=== PATIENT | female | born 1980 | race Caucasian/White ===

== ENCOUNTER 2020-03-30 15:27 | Emergency (ER) | payer OTHER, SELFPAY ==
[2020-03-30 15:52] VITALS: BP 131/85; PULSE 109; RESP 20; TEMP 36.9; O2SAT 98; BMI 35.7
[2020-03-30 16:17] VITALS: BP 131/85; PULSE 109; RESP 20; TEMP 36.9; O2SAT 98
--- NOTE | 2020-03-30 16:19 | HMH.EDUTC ---
[facility] [place] Disposition Clinical Impression: Cellulitis Qualifiers: Site of cellulitis: extremity Site of cellulitis of extremity: lower extremity Laterality: left Qualified Code(s): L03.116 - Cellulitis of left lower limb Disposition: Home, Self-Care Condition on Discharge: Good Instructions: Cellulitis Additional Instructions: Keep the affected area clean and dry. Follow up with your regular doctor. Take the antibiotics as directed and apply the topical antibiotics as directed. Apply warm wet compresses to the affected area three or four times per day. GO TO THE ER FOR ANY WORSENING SYMPTOMS Prescriptions: Sulfamethoxazole/Trimethoprim [Bactrim DS tablet] 1 each PO BID 10 Days #20 tab Transmission Status: Received by [facility] # [id number] Mupirocin [Bactroban 2% Ointment 22gm tube] 1 applicatio TP TID 7 Days #1 tube Transmission Status: Received by [facility] # [id number] cephALEXin [Keflex 500mg Cap] 500 mg PO Q6H 10 Days #40 cap Transmission Status: Received by [facility] # [id number] Referrals: Dexter Quan [Primary Care Provider] - Time of Disposition: 16:22 Medical Decision Making - Medical Records Medical records reviewed: No: I reviewed the patient's medical records. - Christofer Inquiry Pt receiving controlled substance: No Vital Signs: 03/30/20 15:52 03/30/20 16:17 Temperature 98.4 F 98.4 F Temperature Source Oral Pulse Rate 109 H Pulse Rate [Left Brachial] 109 H Respiratory Rate 20 20 Blood Pressure 131/85 Blood Pressure [Left Arm] 131/85 Blood Pressure Mean [Left Arm] 100 Blood Pressure Source [Left Arm] Automatic Cuff Blood Pressure Position [Left Arm] Sitting 02 Sat by Pulse Oximetry 98 Oxygen Delivery Method Room Air Orders (Tests/Meds): ED MEDICATIONS Discontinued Medications Generic Name Dose Route Start Last Admin Trade Name Freq PRN Reason Stop Dose Admin Ceftriaxone Sodium 1 gm 03/30/20 16:05 03/30/20 16:15 Rocephin 1gm Vial IM 03/30/20 16:06 1 gm ONCE ONE Administration Protocol Lidocaine HCl 0 ml 03/30/20 16:05 03/30/20 16:15 Lidocaine 1% 10ml Mdv IM 03/30/20 16:06 2.1 ml ONCE ONE Administration ORDERS Category Date Time Status Wound Culture and Gram Stain Stat Micro 03/30/20 16:10 Results [facility] HPI - General Stated complaint: Insect bites Time Seen by Provider: 03/30/20 16:00 Mode of Arrival: Ambulatory Source of Information: Patient Limitations: No Limitations Description of Symptoms (Recalled from Triage Doc. by RN): PATIENT STATES THAT 3 DAYS AGO SHE WAS BITTEN BY SOMETHING ON LEFT SIDE OF HER NECK, THEN YESTERDAY NOTICED A BITE ON HER LEFT THIGH. REDNESS AND SWELLING NOTED AROUND BITE ON LEFT THIGH. DENIES FEVER HEENT Symptoms (Recalled from RN notes): No Resp Symptoms (Recalled from RN notes): No Skin Symptoms (Recalled from RN notes): Yes MS Symptoms (Recalled from RN notes): No Functional Status (Recalled from RN notes): WNL - History of Present Illness Provider Complaint: She is here with 2 red areas on her. One is on her left side of her neck and the other is on her left thigh. - Related Data Home Medications Medication Instructions Recorded Confirmed Dextroamphetamine/Amphetamine 40 mg PO DAILY 03/30/20 03/30/20 [Adderall 20 mg Tablet] Previous Rx's Medication Instructions Recorded Mupirocin [Bactroban 2% Ointment 1 applicatio TP TID 7 Days #1 tube 03/30/20 22gm tube] Sulfamethoxazole/Trimethoprim 1 each PO BID 10 Days #20 tab 03/30/20 [Bactrim DS tablet] cephALEXin [Keflex 500mg Cap] 500 mg PO Q6H 10 Days #40 cap 03/30/20 Allergies Allergy/AdvReac Type Severity Reaction Status Date / Time No Known Allergies Allergy Verified 03/30/20 16:01 - Worker's Comp Is this a Worker's Comp case?: No [facility] History - Hepatitis A Screen Drug use history?: No High risk sexual behaviors?: No History of sexually transmitted infection?: No Currently employed?: No
== END 2020-03-30 16:26 | disposition home or self-care (01) ==
PROVIDERS: Emergency Provider Nurse Practitioner Family; PCP Pediatrics
DX: L03.116 Cellulitis of left lower limb (principal); F17.210 Nicotine dependence, cigarettes, uncomplicated
CPT/HCPCS: 87070; 87077; 87205; 96372; 99202